=== PATIENT | male | born 1990 | race African-American/Black ===

== ENCOUNTER 2023-11-30 18:22 | Emergency (ER) | payer MEDICAID, OTHER ==
[~2023-11-30] VITALS: Ht 172.7 cm; Wt 65.8 kg
[2023-11-30 18:50] VITALS: TEMP 98.3
[2023-11-30] MEDS ORDERED: MORPHINE SULFATE INJ 4 MG/ML DISP.SYRIN ONE (19:44)
[2023-11-30] MEDS ORDERED: ONDANSETRON HCL/PF 4 MG/2 ML VIAL ONE (19:44)
[2023-11-30 19:49] LABS: APPEARANCE,URINE CLEAR (CLEAR); BILIRUBIN,URINE 1+ (NEGATIVE); BLOOD, URINE 2+ Ery/uL (NEGATIVE); COLOR,URINE DARK YELLOW (YELLOW); KETONES,URINE NEGATIVE (NEGATIVE); LEUKOCYTE ESTERASE ,URINE NEGATIVE (NEGATIVE); NITRITE, URINE NEGATIVE (NEGATIVE); PROTEIN,URINE TRACE mg/dl (NEGATIVE); UGLUCOSE NEGATIVE (NEGATIVE)
[2023-11-30] MEDS: IV NS 0.9% 1,000 ML BAG IV ONE (20:10)
[2023-11-30] MEDS: ONDANSETRON HCL/PF 4 MG/2 ML VIAL IVP ONE (20:12)
[2023-11-30] MEDS: MORPHINE SULFATE INJ 2 MG/ML DISP.SYRIN IV ONE (20:15)
[2023-11-30] MEDS ORDERED: IV NS 0.9% 250 ML IV ONE (20:19)
[2023-11-30] MEDS ORDERED: IOHEXOL-300 100 ML VIAL IV ONE (20:19)
[2023-11-30 20:34] LABS: ADD URINE CULTURE NO; BACTERIA,URINE 1+ /HPF (None Seen); MUCUS,URINE Few /LPF (None Seen); SQUAMOUS EPITHELIAL CELL,UR None Seen /HPF (None Seen)
[2023-11-30 20:41] LABS: BASOPHILS % (AUTO) 0.1 % (0.0-2.0); EOSINOPHILS % (AUTO) 0.3 % (0.0-6.0); HEMATOCRIT 34 % (39-51); HEMOGLOBIN 11.6 g/dL (13.5-17.5); LYMPHOCYTES # (AUTO) 0.6 K/uL (0.8-4.8); LYMPHOCYTES % (AUTO) 7.9 % (20.0-44.0); MEAN CORPUSCULAR HEMOGLOBIN 26 PG (26.0-33.0); MEAN CORPUSCULAR HGB CONC 34 g/dl (31.0-36.0); MEAN CORPUSCULAR VOLUME 77 fL (80-96); MONOCYTES # (AUTO) 0.4 K/uL (0.1-1.30); MONOCYTES % (AUTO) 5.8 % (2.0-12.0); NEUTROPHILS # (AUTO) 6.2 K/uL (1.8-8.9); NEUTROPHILS % (AUTO) 85.9 % (43.0-81.0); RED BLOOD CELL COUNT(AUTO) 4.47 MIL/uL (4.5-6.0); RED CELL DISTRIBUTION WIDTH 20.5 % (11.5-15.0); WHITE BLOOD COUNT (AUTO) 7.2 K/uL (4.3-11.0)
[2023-11-30 20:43] LABS: BILIRUBIN,DIRECT 2.3 mg/dL (0.0-0.2); CALCIUM, SERUM 7.8 mg/dL (8.5-10.1); CREATININE 1.1 mg/dL (0.6-1.3); POTASSIUM 4.2 mmol/L (3.5-5.1)
[2023-11-30 20:52] LABS: PLATELET COUNT (AUTO) 19 K/uL (150-450)
[2023-11-30 21:30] LABS: EOSINOPHILS % (MANUAL) 1 % (0-4); LYMPHOCYTES % (MANUAL) 4 % (16-48); MONOCYTES % (MANUAL) 4 % (0-11.0); NEUTROPHILS % (MANUAL) 91 (42-76); PLATELET ESTIMATE DECREASED
[2023-11-30 21:32] LABS: ANISOCYTOSIS 1+
[2023-11-30] MEDS ORDERED: PIPERACI/TAZO 3.375GM/D5W 50ML PB IV ONE (21:43)
[2023-11-30] MEDS: PIPERACILLIN /TAZOBACTAM 3.375 G in IV D5W 50 ML IV ONE (21:56)
[2023-11-30 22:12] LABS: INR 2.11 (0.91-1.10); PARTIAL THROMBOPLASTIN TIME 45.7 SEC (24.3-34.3); PROTHROMBIN TIME 21.3 SECS (9.2-11.1)
[2023-11-30] MEDS ORDERED: METR500T PO (22:39)
[2023-11-30] MEDS ORDERED: CIPR-262 PO (22:39)
[2023-11-30 23:09] VITALS: BP 110/65; O2SAT 100
== END 2023-11-30 23:10 | disposition home or self-care (01) ==
LOC: ER 18:51
DX: K52.89 Other specified noninfective gastroenteritis and colitis (principal); K72.10 Chronic hepatic failure without coma; D69.6 Thrombocytopenia, unspecified; I10 Essential (primary) hypertension; K21.9 Gastro-esophageal reflux disease without esophagitis; R11.0 Nausea
CPT/HCPCS: 99285; 74177; 96365; 96375; 96361; 85025; 80048; 83690; 80076; 81001; 36415; 85730; 86850; 85007; J2270; J2405; J2543 ×2; J7060; J7030; J7050; Q9967